=== PATIENT | male | born 1955 | race Caucasian/White ===

== ENCOUNTER 2022-08-09 07:55 | Outpatient (CLI) | payer OTHER, SELFPAY | END 2022-08-09 07:56 | disposition home or self-care (01) | PROVIDERS: PCP Internal Medicine; Visit Provider Family Medicine | DX: Z01.818 Encounter for other preprocedural examination (principal); E78.5 Hyperlipidemia, unspecified; I10 Essential (primary) hypertension; Z12.5 Encounter for screening for malignant neoplasm of prostate | CPT/HCPCS: 80048; 80061; 84153 ==

== ENCOUNTER 2023-01-25 15:11 | Outpatient (CLI) | payer OTHER, SELFPAY ==
[2023-01-25 18:29] LABS: SARS PCR* POSITIVE SARS-CoV-2 (Negative)
== END 2023-01-25 15:12 | disposition home or self-care (01) ==
LOC: LONREF 15:11
PROVIDERS: Visit Provider Family Medicine
DX: R05.9 Cough, unspecified (principal)
CPT/HCPCS: 87635

== ENCOUNTER 2025-03-23 13:45 | Emergency (ER) | payer OTHER, SELFPAY ==
--- OUTSIDE RECORDS SUMMARY | 2003-02-11 05:26 | XMS_ITS | Continuity of Care Document ---
Author Organization GRETCHEN Ortega Address [address] [place] [address] Phone Care Team Providers Care Special Education Case Manager Name Role Phone Unavailable Unavailable Unavailable Allergies, Adverse Reactions, Alerts Substance Reaction Status Criticality latex rash Active No Information latex rash Active No Information Advance Directives Directive Yes / No Effective Date File Name No Information Encounters Encounter Description Practice Location Reason(s) For Visit Diagnoses Date Provider Providers Copied on Encounter GRETCHEN Ortega, [address] [facility], [place], [place], [id number], [place] tel:[phone] [facility] No Information Sep-0 8-200 3 No Information GRETCHEN Ortega, [address], [place], [place], [id number], [place] tel:[phone] [facility] No Information Aug-2 5-200 3 Oneyda Huertas. [address] [facility] [address], [place], [place], [id number], [place]. tel:[phone] Referring Provider: REFERRAL BARAK CARRILLO. Family History Family Member Type Diagnosis Age At Onset No Information Payers Payer name Insurance type Covered libertarian ID Authoriza tion(s) No Information Social History Type Description Quantity Date Captured Comments Sex Male Smoking Status No Information Chief Complaint And Reason For Visit No Information Reason For Referral Reason For Referral No Information History Of Present Illness Encounter Date Complaint History Of Prese nt Illness No Information Functional Status Date Functional Assessmen t No Information Instructions Date Instruction Additional Infor mation No Information Assessments Type Assessment Date No Information Patient Care Teams Name Effective Dates (start - stop) Status Members No Information
--- OUTSIDE RECORDS SUMMARY | 2003-02-11 05:26 | XMS_ITS | Continuity of Care Document ---
Author Organization GRETCHEN Ortega Address [address] [facility] [address] [place] [address] Phone Care Team Providers Care Echocardiographer Name Role Phone Unavailable Unavailable Unavailable Allergies, Adverse Reactions, Alerts Substance Reaction Status Criticality latex rash Active No Information latex rash Active No Information Advance Directives Directive Yes / No Effective Date File Name No Information Encounters Encounter Description Practice Location Reason(s) For Visit Diagnoses Date Provider Providers Copied on Encounter GRETCHEN Ortega, [address] [facility], [place], [place], [id number], [place] tel:[phone] [facility] No Information Sep-0 8-200 3 No Information GRETCHEN Ortega, [address] [facility], [place], [place], [id number], [place] tel:[phone] [facility] No Information Aug-2 5-200 3 Oneyda Huertas. [address] [facility] [address], [place], [place], [id number], [place]. tel:[phone] Referring Provider: REFERRAL BARAK CARRILLO. Family History [...]
--- OUTSIDE RECORDS SUMMARY | 2022-09-06 09:31 | XMS_ITS | Continuity of Care Document ---
Author Organization [facility] Address [address] [address] [place] [address] Phone Care Team Providers Care Application Security Consultant Name Role Phone Arjun Tay CRNA Unavailable Unavailable Allergies, Adverse Reactions, Alerts Substance Reaction Status Criticality latex Rash Active No Information Medications Medication Instructions Dosage Effective Dates (start - stop) Status Comments losartan 50 mg tablet take 1 tablet by o ral route every day 50 MG - Active metoprolol succinate ER 50 mg tablet,extended release 24 hr take 1 tablet by oral route every day 50 MG - Active rosuvastatin 10 mg tablet take 1 tablet by oral route every day 10 MG - Active Nexium 24HR 20 mg tablet,delayed release take 1 capsule by oral route every day 1 capsule - Active Procedures Procedure Date Colonoscopy Flex; W/remov Les- 23 Colonoscopy Flex; W/bx 1/mx Level Iv-surg Path Gross/micro 23 Advance Directives Directive Yes / No Effective Date File Name No Information Encounters Encounter Description Practice Location Reason(s) For Visit Diagnoses Date Provider Providers Copied on Encounter [facility], [address] [address], [place], [id number], [place] tel:[phone] [place] [facility] No Information 3 Jasvir Díaz. [address] [facility], [place], [place], [id number] , [place]. [phone] Referring Provider: Tristan Carballo MD, [address] [facility] [address], [place], [address] . tel:[phone] [facility], [address] [address], [place], [id number], [place] tel:[phone] [facility] GI Symptoms or Concerns (chief complaint) Colorectal polypsDiverticulosi sEncounter for screening for malignant neoplasm of colonPersonal history of colonic polypsBenign neoplasm of ascending colonBenign neoplasm of transverse colonBenign neoplasm of transverse colonBenign neoplasm of ascending colon Apr-0 3 Haris Hudson. [address] [facility] [facility] [address], [place], [place], [id number] , [place]. tel:[phone] Dunia Fair MD. tel:[phone] erring Provider: Referral Self, USE FOR SELF REFERRALS. [facility], [address] [address], [place], [id number], [place] tel:[phone] [facility] No Information Mar-3 3 Joaquim Nowak. [address] [facility], [facility] [address], [place], [place], [address] , [place]. tel:[phone] Family History Family Member Type Diagnosis Age At Onset Father Problem (finding) Cancer, bladder Immunizations Vaccine Date Status Comments zoster vaccine recombinant administered N ote: [facility] bi-directional interface ; Source: Other Registry influenza, high-dose seasona l, quadrivalent, .7mL dose, preservative free administered Note: [facility] bi-direct ional interface ; Source: Other Registry SARS-COV-2 (COVID-19) vaccin e, mRNA, spike protein, LNP, bivalent booster, preservative free, 30 mcg/0.3 mL dose, florentino-sucrose formulation administered Note: [facility] bi-d irectional interface ; Source: Other Registry SARS-COV-2 (COVID-19) vaccin e, mRNA, spike protein, LNP, preservative free, 30 mcg/0.3mL dose administered Note: [facility] bi-direct ional interface ; Source: Other Registry Influenza administered Note: [facility] bi-d irectional interface ; Source: Other Registry SARS-COV-2 (COVID-19) vaccin e, mRNA, spike protein, LNP, preservative free, 30 mcg/0.3mL dose administered Note: [facility] bi-direct ional interface ; Source: Other Registry SARS-COV-2 (COVID-19) vaccin e, mRNA, spike protein, LNP, preservative free, 30 mcg/0.3mL dose administered Note: [facility] bi-direct ional interface ; Source: Other Registry Seasonal, quadrivalent, recombinant, injectable influenza vaccine, preservative free administered Note: [facility] bi-direct ional interface ; Source: Other Registry influenza virus vaccine, horace e, attenuated, for intranasal use administered Note: [facility] C bi- directional interface ; Source: Other Registry Afluria Qd administered Note: [facility] bi-directional interface ; Source: Other Registry Afluria Qd administered Note: [facility] bi-directional interface ; Source: Other Registry Influenza administered Note: [facility] bi-d irectional interface ; Source: Other Registry Afluria Qd administered Note: [facility] bi-directional interface ; Source: Other Registry influenza virus vaccine, who le virus administered Note: [facility] bi-direct ional interface ; Source: Other Registry Influenza, seasonal, injecta ble, preservative free administered Note: [facility] bi-direct ional interface ; Source: Other Registry influenza, high dose seasona l, preservative-free administered Note: [facility] bi-direct ional interface ; Source: Other Registry Influenza, seasonal, injecta ble, preservative free administered Note: [facility] bi-direct ional interface ; Source: Other Registry Influenza, seasonal, injecta ble, preservative free administered Note: [facility] bi-direct ional interface ; Source: Other Registry Influenza, seasonal, injecta ble, preservative free administered Note: [facility] bi-direct ional interface ; Source: Other Registry Afluria Qd administered Note: M [facility] bi-directional interface ; Source: Other Registry Novel [id number], injectable administered Note: [facility] bi-direct ional interface ; Source: Other Registry Influenza, seasonal, injectable administe red Note: [facility] bi- directional interface ; Source: Other Registry tetanus toxoid, reduced diphtheria toxoid, and acellular pertussis vaccine, adsorbed administered Note: [facility] b i-directional interface ; Source: Other Registry hepatitis B vaccine, unspeci fied formulation administered Note: [facility] bi-direct ional interface ; Source: Other Registry hepatitis B vaccine, unspeci fied formulation administered Note: [facility] bi-direct ional interface ; Source: Other Registry hepatitis B vaccine, unspeci fied formulation administered Note: [facility] bi-direct ional interface ; Source: Other Registry measles, mumps and rubella v irus vaccine administered Note: [facility] bi-direct ional interface ; Source: Other Registry measles, mumps and rubella v irus vaccine administered Note: [facility] bi-direct ional interface ; Source: Other Registry Payers Payer name Insurance type Covered libertarian ID Authoriza tion(s) No Information Social History Type Description Quantity Date Captured Comments Sex Male Smoking Status No Information Chief Complaint And Reason For Visit No Information Reason For Referral Reason For Referral No Information History Of Present Illness Encounter Date Complaint History Of Prese nt Illness GI Symptoms or Concerns Functional Status Date Functional Assessmen t No Information Instructions Date Instruction Additional Infor mation high fiber diet Related to Color ectal polyps Diverticulosis/Diverticulitis Re lated to Colorectal polyps Colon Polyps Related to Color ectal polyps Colon Cancer Prevention Related to Colorectal polyps Assessments Type Assessment Date No Information Patient Care Teams Name Effective Dates (start - stop) Status Members No Information
--- OUTSIDE RECORDS SUMMARY | 2022-09-06 09:31 | XMS_ITS | Continuity of Care Document ---
Author Organization [facility] Address [address] [address] [place] [address] Phone Care Team Providers Care Hardware Designer Name Role Phone Arjun Tay CRNA Unavailable [...] Diagnoses Date Provider Providers Copied on Encounter [facility], [address] [address], [place], [id number], [place] tel:[phone] [place] [facility] No Information 3 Jasvir Díaz. [address] [facility], [place], [place], [id number] , [place]. tel:[phone] Referring Provider: Tristan Carballo MD, [address] [facility] [address], [place], [address] . tel:[phone] [facility], [address] [address], [place], [id number], [place] tel:[phone] [facility] GI Symptoms or Concerns (chief complaint) Colorectal polypsDiverticulosi sEncounter for screening for malignant neoplasm of colonPersonal history of colonic polypsBenign neoplasm of ascending colonBenign neoplasm of transverse colonBenign neoplasm of transverse colonBenign neoplasm of ascending colon Apr-0 3 Haris Hudson. [address] [facility], [facility] [address], [place], [place], [id number] , [place]. tel:[phone] Dunia Fair MD. tel:[phone] erring Provider: Referral Self, USE FOR SELF REFERRALS. [facility], [address] [address], [place], [id number], [place] tel:[phone] [facility] No Information Mar-3 3 Joaquim Nowak. [address] [facility], [facility] [address], [place], [place], [address] , [place]. tel:[phone] Family History Family Member Type Diagnosis Age [...] bi-directional interface ; Source: Other Registry Novel [id number], injectable administered Note: [facility] bi-direct ional interface [...] Registry Payers Payer name Insurance type Covered democrat ID Authoriza tion(s) No Information Social History [...]
--- OUTSIDE RECORDS SUMMARY | 2025-03-23 13:48 | XMS_ITS | Clinical Summary ---
Author Organization [facility] Address [address] [place] [address] Care Team Providers Care Brick Mason Name Role Phone Pcp, No Primary Care Provider Dunia Linda MD Unavailable [phone] Allergies Active Allergy Reactions Criticality Noted Date Comments Latex *Unknown 08/14/2013 Medications ACETAMINOPHEN (TYLENOL ORAL) Take 500 mg by mouth once daily. Active ASPIRIN ORAL Take 81 mg by mouth once daily. Active losartan (COZAAR) 50 mg tablet Take 25 mg by mouth once daily. Active atorvastatin (LIPITOR) 20 mg tablet Take 20 mg by mouth once daily. Active METOPROLOL SUCCINATE (TOPROL XL ORAL) Take 50 mg by mouth. 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 PCP - General 06/01/12 Dunia Fair MD . Internal Medicine 08/06/13
--- OUTSIDE RECORDS SUMMARY | 2025-03-23 13:48 | XMS_ITS | Clinical Summary ---
Author Organization [facility] Address [address] [place] [address] Care Team Providers Care Offset Proof Press Operator Name Role Phone No Ref-Primary, Physician Primary Care Provider Allergies Active Allergy Reactions Criticality Noted Date Comments Latex 03/17/2019 Medications atorvastatin (LIPITOR) 20 MG tablet Take 20 mg by mouth Active losartan (COZAAR) 100 MG tablet Take 100 mg by mouth daily Active Metoprolol Succinate 50 MG CS24 Take 50 mg by mouth Active ASPIRIN 81 PO Take 81 mg by mouth Active doxylamine (UNISOM) 25 MG TABS tablet Take 25 mg by mouth At Bedtime Active esomeprazole (NEXIUM) [address] capsule Take 20 mg by mouth daily as needed Take 30-60 minutes before eating. 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 Gender Identity Not on file Sexual Orientation Not on file Last Filed Vital Signs Vital Sign Reading Time Taken Comments Blood Pressure 120/63 03/17/2019 3:28 PM CDT Pulse 89 03/17/2019 3:28 PM CDT Temperature 37.2 C (99 F) 03/17/2019 3:28 PM CDT Respiratory Rate 16 03/17/2019 3:28 PM CDT Oxygen Saturation 92% 03/17/2019 3:28 PM CDT Inhaled Oxygen Concentration - - Weight 95.7 kg (211 lb) 03/17/2019 10:16 AM CDT Height 185.4 cm (6' 1) 03/17/2019 10:16 AM CDT Body Mass Index 27.84 03/17/2019 10:16 AM CDT Plan of Treatment Not on file Advance Directives For more information, please contact: [phone] * Full Code (Latest Code Status on File) Date Activated Date Inactivated Comments 03/17/2019 10:28 AM 03/17/2019 6:48 PM Question Answer Comments Code status determined by: Discussion with raciel nt/legal decision maker Care Teams Offset Proof Press Operator Relationship Specialty Start Date End Date No Ref-Primary, Physician PCP - General 03/17/19
--- NOTE | 2025-03-23 13:53 | CRLHL7_ITS ---
For Patients: As a result of the Century Cures Act, medical imaging exams and procedure reports are released immediately into your electronic medical record. You may view this report before your referring provider. If you have questions, please contact your health care provider. Indication: 69-year-old follow-up head injury January 31, 2025, new symptoms. Left foot drop with headaches and dizziness. Technique: Routine head CT protocol. Comparison: None. Findings: Extra-axial spaces: Acute to subacute right frontal convexity subdural hematoma with maximum diameter of 1.6 centimeters. This results in overlying effacement of the sulci and shift of midline to the left of 6 millimeters. No herniation. No intra-axial hemorrhage. Brain: No intracranial hemorrhage mass lesion or acute cortical ischemia. Minor patchy white-matter changes are nonspecific but consistent with small vessel ischemic/degenerative changes. Ventricles: No hydrocephalus. Partial effacement right frontal and temporal horns. Midline: No shift. Normal structures. Posterior fossa: Negative. Orbits: Normal. Paranasal sinuses: Normal. Mastoid sinuses: Normal. Skull base and calvarium: Normal. Impression: 1. 1.6 centimeter thick RIGHT FRONTAL CONVEXITY SUBDURAL HEMATOMA is acute to subacute with shift of midline to the left of 6 millimeters. No additional intracranial hemorrhages. Critical findings discussed with Dr. Alex Howard at 14: 22, [facility]. Please note that all CT scans at this facility use dose modulation, iterative reconstruction, and/or weight-based dosing when appropriate to reduce radiation dose to as low as reasonably achievable. Dictated by Diogo Mar MD @ 03/23/2025 2:25:38 PM (Electronically Signed)
[2025-03-23 14:14] VITALS: BP 151/80; PULSE 68; RESP 18; TEMP 36.7; O2SAT 96; BMI 30.4
[2025-03-23 14:51] VITALS: BP 118/79; PULSE 77; RESP 16; TEMP 36.6; O2SAT 97; O2SAT 98
[2025-03-23 14:54] LABS: Hematocrit* 43.8 % (37.0-53.0); Hemoglobin* 14.3 gm/dL (13.5-17.5); Immature Granulocytes Abs Auto 0.04 K/uL (0.00-0.30); Immature Granulocytes Pct Auto 0.7 %; Lymphocytes Absolute Auto 1.52 K/uL (0.90-2.90); Mean Corpuscular HGB Conc 33 gm/dL (32-36); Mean Corpuscular Hemoglobin 30 pg (26-34); Mean Corpuscular Volume 91 fL (80-100); RDW Coefficient of Variation % 12.6 % (11.5-15.5); Red Blood Count* 4.80 m/uL (4.30-5.90); White Blood Count* 5.85 K/uL (4.50-11.00)
[2025-03-23 15:10] LABS: Slide Review Reflex No
[2025-03-23 15:13] LABS: INR 0.89 (0.91-1.10); Prothrombin Time 12.8 Seconds
[2025-03-23 15:22] LABS: Chloride* 102 mmol/L (96-114); Sodium* 136 mmol/L (135-149)
[2025-03-23 15:23] LABS: Potassium* 4.3 mmol/L (3.6-5.1)
[2025-03-23 15:25] LABS: Blood Urea Nitrogen* 18 mg/dL (7-30); Creatinine* 0.9 mg/dL (0.5-1.5); Est. Creatinine Clearance* 77.60; Estimated Glomerular Filt Rate 93 ml/min
[2025-03-23 15:26] LABS: Anion Gap 5 mEq/L (7-15); Calcium* 9.2 mg/dL (8.4-10.6); Carbon Dioxide* 29 mmol/L (20-32); Glucose* 101 mg/dL (60-115)
--- NOTE | 2025-03-23 15:34 | ED_ITS ---
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 He said he did well after this but was having occasional episodes of dizziness, on and off since this occurred. Slight headache also associated with this. Would really made him concerned disease started to develop of slight left footdrop, when he was walking although he does have a history of previous back problems. This is a history of a cervical fusion in the past he tells me is absolutely no neck pain. Denies any numbness tingling weakness episodes of vomiting associated with this it only anticoagulant he is on is aspirin. He talked to 1 of his partners in the clinic was post order head CT, he came to the ER today and found out that head CT was not ordered. He came back and talk to me, and I thought it would be prudent that we see him. He is able to walk without problems, does not drink alcohol. Past medical history of aortic stenosis, with a root repair. Lumbar back surgery, cervical neck surgery with fusion. Complaint: head injury Onset (ago): week(s) Mechanism of Injury: sports related injury Place: outdoors Loss of Consciousness: no Location of injury: frontal and parietal Severity: moderate Radiation: none Other Injuries: other (Did have some bruising on his right flank right lower abdominal region but this is resolved.) Context: on aspirin Associated symptoms: denies other symptoms Related Data Home Medications ?Medication ?Instructions ?Recorded ?Confirmed aspirin 81 mg tablet,delayed 81 mg PO DAILY 03/23/25 1 release (Adult Aspirin Regimen) Previous Rx's ?Medication ?Instructions ?Recorded rosuvastatin 10 mg tablet 10 mg PO QDAY #90 tabs 10/19 metoprolol succinate 50 mg 50 mg PO QDAY #90 tabs 01/04 12/28 tablet,extended release 24 hr losartan 50 mg tablet 50 mg PO QDAY #90 tabs 01/22 Allergies Allergy/AdvReac Type Severity Reaction Status Date / Time latex Allergy Unknown Verified 08/12/22 08:10 Review of Systems Status of ROS: Reports: 10 or more systems reviewed and unremarkable except as noted in History and below PFSH [facility] Medical History Dupuytren contracture ?M72.0 - Palmar fascial fibromatosis [Dupuytren] (ICD-10) Aneurysm of thoracic aorta (05/25/12) ?I71.20 - Thoracic aortic aneurysm, without rupture, unspecified (ICD-10) Surgical History H/O hand surgery ?Z98.890 - Other specified postprocedural states (ICD-10) S/P thoracic aortic aneurysm repair ?Z98.890 - Other specified postprocedural states (ICD-10) ?Z86.79 - Personal history of other diseases of the circulatory system (ICD- 10) History of umbilical hernia repair (05/25/12) ?Z98.890 - Other specified postprocedural states (ICD-10) ?Z87.19 - Personal history of other diseases of the digestive system (ICD-10) History of tonsillectomy and adenoidectomy (05/25/12) ?Z90.89 - Acquired absence of other organs (ICD-10) Status post laparoscopic cholecystectomy ?Z90.49 - Acquired absence of other specified parts of digestive tract (ICD- 10) History of repair of inguinal hernia (05/25/12) ?Z98.890 - Other specified postprocedural states (ICD-10) ?Z87.19 - Personal history of other diseases of the digestive system (ICD-10) Status post cervical spinal fusion (05/25/12) ?Z98.1 - Arthrodesis status (ICD-10) History of appendectomy (05/25/12) ?Z90.49 - Acquired absence of other specified parts of digestive tract (ICD- 10) Social History Smoking Status: Never smoker Do you use any of these nicotine containing products: None Second hand tobacco smoke exposure: No How often do you have a drink containing alcohol: never How often do you have six or more drinks on one occasion: Never AUDIT-C Alcohol total score: 0 Non-prescribed substance use: denies use service: No Exam Narrative: Exam Narrative: On examination in room 1 his pupils equal round reactive to light a little bit of nystagmus when he looks to the right. 2 beats. None to the left. TMs are normal oropharynx normal neck is supple cranial nerves 3-12 are normal no evidence of bruising over the head or neck region, scars from previous cervical surgery noted, chest is good air entry bilaterally no wheezing crackles noted heart sounds are normal his abdomen is soft there is no guarding no organomegaly moves all extremities independently and well fine motor movements fingers nose testing normal appears to be right-handed. He does have just a slight left- sided ankle dorsiflexor weakness. 4+ out of 5 in comparison to the right. Plantar flexion, knee flexion extension and hip flexion are all normal. Bilaterally sensations normal his upper lower extremities grossly moves normally. Pulses are normal. No bruising over his abdominal region is noted, or flank where he had the previous bruising. Const: Vital Signs, click to edit/add: Vital Signs - 24 hr 03/23/25 14:14 03/23/25 14:51 03/23/25 14:51 Temperature 98.1 F 97.8 F Pulse Rate [Pulse Oximeter] 68 77 Respiratory Rate 18 16 Blood Pressure [Ri ght Upper Arm] 151/80 H 118/79 Pulse Oximetry 96 98 97 Oxygen Delivery Me thod Room Air Room Air Documenting provider has reviewed patient's vital signs: yes Course Course ED Course: Patient remains stable, I initially talked the pig lead melter helper at [facility] as patient's request to go to [place]. He thought that this patient could be seen on the medical floor as he is so stable he just having some very mild dizziness. I will then speak to the pig lead melter helper. I then did speak to Dr. Peck from Neurosurgery at [facility], he offered 2 options to great, he transfer to [facility] he can do a craniotomy tomorrow, or he could see him on Tuesday and discuss further treatment he is very confident that this is a chronic finding, and he does not need to be kept here repeat the CT or anything else. And [address] Chaudh[address] and he decided to the he would take the neurosurgeon up on his suggestion see him in clinic, we on went over signs and symptoms of worsening and when he should watch for any was very comfortable with this. He left ambulatory from this hospital and no distress. Vital Signs Vital signs: Initial Vital Signs Temperature 98.1 F 03/23/25 14:14 Temperature Source Temporal Artery Scan 03/23/25 14:14 Pulse Rate 68 03/23/25 14:14 Respiratory Rate 18 03/23/25 14:14 Blood Pressure 151/80 H 03/23/25 14:14 Blood Pressure Mean 103 03/23/25 14:14 Pulse Oximetry 96 03/23/25 14:14 Oxygen Delivery Method Room Air 03/23/25 14:14 Vital Signs Temperature 98.1 F 03/23/25 14:14 Pulse Rate 68 03/23/25 14:14 Respiratory Rate 18 03/23/25 14:14 Blood Pressure 151/80 H 03/23/25 14:14 Pulse Oximetry 96 03/23/25 14:14 Oxygen Delivery Method Room Air 03/23/25 14:14 Temperature 97.8 F 03/23/25 14:51 Pulse Rate 77 03/23/25 14:51 Respiratory Rate 16 03/23/25 14:51 Blood Pressure 118/79 03/23/25 14:51 Pulse Oximetry 97 03/23/25 14:51 Oxygen Delivery Method Room Air 03/23/25 14:51 MDM - Head Injury MDM Narrative Medical decision making narrative: Life-threatening differential diagnosis is considered include: Subarachnoid hemorrhage, subdural hemorrhage, epidural hemorrhage. Other differential diagnosis considered include concussion, closed head injury, or neck fracture. Medical Records Attestation: I reviewed the patient's medical records. Lab Data Attestation: I reviewed the patient's lab results. Labs: Lab Results 03/23/25 Range/Units 14:47 WBC 5.85 (4.50-11.00) K/uL RBC 4.80 (4.30-5.90) m/uL Hgb 14.3 (13.5-17.5) gm/dL Hct 43.8 (37.0-53.0) % MCV 91 (80-100) fL MCH 30 (26-34) pg MCHC 33 (32-36) gm/dL RDW Coeff of Gia 12.6 (11.5-15.5) % Plt Count 190 (140-440) K/uL Neut % (Auto) 61.7 (42.0-72.0) % Lymph % (Auto) 26.0 (20-44) % Emmons % (Auto) 10.3 (0.0-11.0) % Eos % (Auto) 1.0 (0.0-7.0) % Baso % (Auto) 0.3 (0.0-3.0) % Neut # (Auto) 3.61 (1.7-7.0) K/uL Lymph # (Auto) 1.52 (0.90-2.90) K/uL Emmons # (Auto) 0.60 (0.00-0.90) K/UL Eos # (Auto) 0.06 (0.00-0.50) K/uL Baso # (Auto) 0.02 (0.00-0.30) K/uL Abs Immat Gran (auto) 0.04 (0.00-0.30) K/uL Imm/Tot Granulo (auto) 0.7 % INR 0.89 L (0.91-1.10) APTT 34 H (23-33) Seconds Sodium 136 (135-149) mmol/L Potassium 4.3 (3.6-5.1) mmol/L Chloride 102 (96-114) mmol/L Carbon Dioxide 29 (20-32) mmol/L Anion Gap 5 L (7-15) mEq/L BUN 18 (7-30) mg/dL Creatinine 0.9 (0.5-1.5) mg/dL Estimated Creat Clear 77.60 Estimated GFR 93 ml/min Glucose 101 (60-115) mg/dL Calcium 9.2 (8.4-10.6) mg/dL Imaging Data CT scan - head: Attestation: I have reviewed the pertinent imaging results. My impression: Acute right frontal subdural. Radiologist's impression: [place] [address] Diagnostic Imaging Report Patient: Tripp Payne MR#: [id number] : 1955 Acct:[id number] Loc: ED Service Date: 03/23/[address]: Ordering Physician: Alex Howard M.D. Date of Service: 03/23/25 Procedure(s): CT head/brain wo con Accession Number(s): [id number] cc: Provider,Not a Local; Alex Howard M.D.~ For Patients: As a result of the 21st Century Cures Act, medical imaging exams and procedure reports are released immediately into your electronic medical record. You may view this report before your referring provider. If you have questions, please contact your health care provider. Indication: 69-year-old follow-up head injury January 31, 2025, new symptoms. Left foot drop with headaches and dizziness. Technique: Routine head CT protocol. Comparison: None. Findings: Extra-axial spaces: Acute to subacute right frontal convexity subdural hematoma with maximum diameter of 1.6 centimeters. This results in overlying effacement of the sulci and shift of midline to the left of 6 millimeters. No herniation. No intra-axial hemorrhage. Brain: No intracranial hemorrhage mass lesion or acute cortical ischemia. Minor patchy white-matter changes are nonspecific but consistent with small vessel ischemic/degenerative changes. Ventricles: No hydrocephalus. Partial effacement right frontal and temporal horns. Midline: No shift. Normal structures. Posterior fossa: Negative. Orbits: Normal. Paranasal sinuses: Normal. Mastoid sinuses: Normal. Skull base and calvarium: Normal. Impression: 1. 1.6 centimeter thick RIGHT FRONTAL CONVEXITY SUBDURAL HEMATOMA is acute to subacute with shift of midline to the left of 6 millimeters. No additional intracranial hemorrhages. Critical findings discussed with Dr. Alex Howard at 14: 22, E LEARNING MANAGER. Please note that all CT scans at this facility use dose modulation, iterative reconstruction, and/or weight-based dosing when appropriate to reduce radiation dose to as low as reasonably achievable. Dictated by Diogo Mar MD @ 03/23/2025 2:25:38 PM (Electronically Signed) ECG Data Attestation: I personally reviewed and interpreted this ECG as follows: ECG interpretation date: 03/23/25 Interpretation: EKG shows normal sinus rhythm with mild 1st degree AV block with a heart rate of 68, QRS normal at 90, QT normal at 416 and QTC normal at 442. Discharge Plan Discharge Clinical Impression: Chronic subdural hematoma Patient Disposition: Home, Self-Care Condition: Stable Instructions: Craniotomy for a Brain Bleed (DC) Additional Instructions: As we discussed, increasing symptoms of headache numbness tingling weakness, nausea vomiting your to come back, but Dr. Mcue feels that this is likely chronic. You were supposed to call, Tuesday morning early to talk to his nurse, Kathy at [phone] she will get you in for an appointment that day. No heavy lifting no exercising, no alcohol I would hold on your aspirin for now. Activity Level: Light activity Prescriptions: No Action aspirin [Adult Aspirin Regimen] 81 mg tablet,delayed release (DR/EC) 81 mg PO DAILY rosuvastatin 10 mg tablet 10 mg PO QDAY Qty: 90 3RF metoprolol succinate 50 mg tablet extended release 24 hr 50 mg PO QDAY Qty: 90 3RF losartan 50 mg tablet 50 mg PO QDAY Qty: 90 3RF Follow Up/Referrals: Dunia Fair MD [Primary Care Provider, Internal Medicine] Stand Alone Forms: [employer] Info Instructions
--- NOTE | 2025-03-24 18:17 | W.ED.CHARTNO ---
ED Chart Note Chart Note Details Date: 03/24/25 Details: I spoke to the patient on the phone today, to check in with him with his history of subdural hematoma, he has out to eat with his family, he is having no nausea no problems with walking or ataxia. Just some very mild headache, he is looking forward to his appointment tomorrow with neuro surgery, seems to be doing all right, had told him if he has any problems and I am working in the ER and I told him to come back to the ER. He was grateful for this.
== END 2025-03-23 17:10 | disposition home or self-care (01) ==
PROVIDERS: Emergency Provider Family Medicine; PCP Internal Medicine
DX: S06.5X0A Traumatic subdural hemorrhage without loss of consciousness, initial encounter (principal); V19.3XXA Pedal cyclist (driver) (passenger) injured in unspecified nontraffic accident, initial encounter
CPT/HCPCS: 36415; 70450; 80048; 85025; 85610; 85730; 93005; 94761; 99285